=== PATIENT | female | born 1985 | race Caucasian/White ===

== ENCOUNTER 2017-03-21 11:31 | Emergency (ER) | payer OTHER ==
[2017-03-21 11:38] VITALS: RESP 18; O2SAT 100
[2017-03-21] MEDS ORDERED: Sodium Chloride 0.9% 1,000 ML IV ONE (12:46)
[2017-03-21] MEDS ORDERED: Sodium Chloride 0.9% 1,000 ML ONE (12:55)
[2017-03-21 13:08] LABS: BASO % 0.5 % (0.0-2.0); EOS % 0.7 % (0.0-4.0); HEMATOCRIT 40.3 % (34.0-47.0); LYMPH # 1.8 K/uL (1.0-4.3); LYMPH % 48.3 % (20.0-40.0); MEAN CELL VOLUME 67.1 fL (81.0-99.0); MEAN CORPUSCULAR HEMOGLOBIN 20.9 pg (27.0-31.0); MEAN CORPUSCULAR HGB CONC 31.2 g/dL (33.0-37.0); MEAN PLATELET VOLUME 10.5 fL (7.2-11.7); MONO # 0.4 K/uL (0.0-0.8); MONO % 12.3 % (0.0-10.0); WHITE BLOOD COUNT 3.6 K/uL (4.8-10.8)
[2017-03-21 13:16] LABS: RBC URINE 1 /hpf (0-3); URINE BILIRUBIN NEGATIVE (NEGATIVE); URINE BLOOD NEGATIVE (NEGATIVE); URINE COLOR Yellow (YELLOW); URINE GLUCOSE (UA) NORMAL (Normal); URINE KETONE NEGATIVE (NEGATIVE); URINE LEUKOCYTE ESTERASE NEG Leu/uL (Negative); URINE PROTEIN NEGATIVE (NEGATIVE); URINE UROBILINOGEN NORMAL mg/dL (0.2-1.0); WBC URINE < 1 /hpf (0-5)
[2017-03-21 13:18] LABS: CHLORIDE 100 mmol/L (98-107); POTASSIUM 3.4 mmol/L (3.6-5.2); SODIUM 138 mmol/L (132-148)
[2017-03-21 13:20] LABS: BILIRUBIN,TOTAL 0.6 mg/dL (0.2-1.3); CARBON DIOXIDE 23 mmol/L (22-30); GFR AFRICAN-AMERICAN > 60
[2017-03-21 13:21] LABS: ALB/GLOB RATIO 1.3 (1.0-2.1); ALKALINE PHOSPHATASE 48 U/L (38-126); ALT/SGPT 17 U/L (9-52); AST/SGOT 19 U/L (14-36); BLOOD UREA NITROGEN 6 mg/dL (7-17); CALCIUM 9.2 mg/dl (8.6-10.4); GLUCOSE,RANDOM 76 mg/dL (65-105); TOTAL PROTEIN 7.8 g/dL (6.3-8.3)
[2017-03-21 16:36] VITALS: BP 107/65; PULSE 86; TEMP 98
--- NOTE | 2017-03-21 17:47 | US ---
PROCEDURE: OB Pelvic Ultrasound HISTORY: and pain COMPARISON: None available. FINDINGS: UTERUS: Gestational sac: Single intrauterine gestation. Heart rate: 163 bpm. age (Ultrasound estimated): 11 weeks +/-0 weeks 5 days Catarina-gestational hemorrhage: None. Date of delivery (Ultrasound estimated) : 10/10/2017 Uterus measures 13.2 x 6 x 9.1 cm. Normal in size and appearance. CERVIX: Long and closed. No cervical abnormality seen. RIGHT OVARY: Measures 4.2 x 1.7 x 3.2 cm. No mass lesion. Normal flow. LEFT OVARY: Measures 3.2 x 2.1 x 2 cm. No solid mass. Normal flow. FREE FLUID: None. OTHER FINDINGS: None. IMPRESSION: Single intrauterine live with ultrasound estimated gestational age of 11 weeks 0 day +/- 0 weeks 5 days. Estimated date of delivery by ultrasound is 10/10/2017.
--- NOTE | 2017-03-21 17:50 | C.PDOC ---
Time Seen by Provider: 03/21/17 12:37 Chief Complaint (Nursing): Abdominal Pain Past Medical History Vital Signs: Last Vital Signs Temp 98 F 03/21/17 16:36 Pulse 86 03/21/17 16:36 Resp 18 03/21/17 16:36 BP 107/65 03/21/17 16:36 Pulse Ox 100 03/21/17 16:36 - Social History Hx Alcohol Use: No Hx Substance Use: No ED Course And Treatment - Laboratory Results Result Diagrams: 03/21/17 12:56 03/21/17 12:56 O2 Sat by Pulse Oximetry: 100 - CT Scan/US US 1st Trimester Other Rad Studies (CT/US): Read By Radiologist, Radiology Report Reviewed CT/US Interpretation: IMPRESSION: Single intrauterine live with ultrasound estimated gestational age of 11 weeks 0 day +/- 0 weeks 5 days. Estimated date of delivery by ultrasound is 10/10/2017.
--- NOTE | 2017-03-21 17:52 | C.PDOC ---
History Of Present Illness 31-year-old female, presents to the emergency department with complaints of lower-back pain bilaterally, that is radiating to groin. Pain is persistent in nature and rated 4/10. It is dull and associated with cough/congestion. Patient notes specks of blood in her vomitus yesterday. Denies headache, back pain, dizziness, or any other associated symptoms. No other complaints at this time. Time Seen by Provider: 03/21/17 12:37 Chief Complaint (Nursing): Abdominal Pain History Per: Patient History/Exam Limitations: no limitations Past Medical History Reviewed: Historical Data, Nursing Documentation, Vital Signs Vital Signs: Last Vital Signs Temp 98 F 03/21/17 16:36 Pulse 86 03/21/17 16:36 Resp 18 03/21/17 16:36 BP 107/65 03/21/17 16:36 Pulse Ox 100 03/21/17 18:21 Family History: States: Unknown Family Hx - Social History Hx Alcohol Use: No Hx Substance Use: No Review Of Systems Except As Marked, All Systems Reviewed And Found Negative. Constitutional: Negative for: Fever, Chills Cardiovascular: Negative for: Chest Pain Respiratory: Positive for: Cough. Negative for: Shortness of Breath Gastrointestinal: Positive for: Nausea, Vomiting Musculoskeletal: Positive for: Back Pain Skin: Negative for: Rash Neurological: Negative for: Weakness, Numbness Physical Exam - Physical Exam Appears: Non-toxic, No Acute Distress Skin: Normal Color, Warm, Dry Head: Atraumatic, Normacephalic Eye(s): bilateral: Normal Inspection, PERRL, EOMI Nose: Normal Throat: Normal Neck: Normal Cardiovascular: Rhythm Regular Respiratory: Normal Breath Sounds, No Accessory Muscle Use Gastrointestinal/Abdominal: Normal Exam Back: Normal Inspection Pelvic: No Cervical Motion Tenderness Extremity: Normal ROM Neurological/Psych: Oriented x3, Normal Speech ED Course And Treatment - Laboratory Results Result Diagrams: 03/21/17 12:56 03/21/17 12:56 O2 Sat by Pulse Oximetry: 100 - CT Scan/US US 1st Trimester CT/US Interpretation: Accession No. : [id number]. Patient Name / ID : MG HERRERA / [id number]. Exam Date : 03/21/2017 15:55:54 ( Approved ). Study Comment : Sex / Age : F / 31Y. Creator : Jessy Swift. Dictator : Jessy Swift. Staining Machine Operator : Waxed Bag Machine Operator : Jessy Swift. Approver2 : Report Date : 03/21/2017 17:45:37. My Comment : . PROCEDURE: OB Pelvic Ultrasound. HISTORY: and pain. COMPARISON: None available. FINDINGS: UTERUS: Gestational sac: Single intrauterine gestation. Heart rate: 163 bpm. age (Ultrasound estimated): 11 weeks +/-0 weeks 5 days. Catarina-gestational hemorrhage: None. Date of delivery (Ultrasound estimated) : 10/10/2017. Uterus measures 13.2 x 6 x 9.1 cm. Normal in size and appearance. CERVIX: Long and closed. No cervical abnormality seen. RIGHT OVARY: Measures 4.2 x 1.7 x 3.2 cm. No mass lesion. Normal flow. LEFT OVARY: Measures 3.2 x 2.1 x 2 cm. No solid mass. Normal flow. FREE FLUID: None. OTHER FINDINGS: None. IMPRESSION: Single intrauterine live with ultrasound estimated gestational age of 11 weeks 0 day +/- 0 weeks 5 days. Estimated date of delivery by ultrasound is 10/10/2017. Disposition Counseled Patient/Family Regarding: Studies Performed, Diagnosis, Need For Followup - Disposition Disposition: HOME/ ROUTINE Disposition Time: 17:50 Condition: STABLE Additional Instructions: Follow up with your doctor. Return to the Emergency department with any other concerned, Drink pleny water, get extra rest. Instructions: (ED), Upper Respiratory Infection (ED) - POA Present On Arrival: None - Clinical Impression Clinical Impression: Back pain, Upper respiratory infection, at early stage - Scribe Statement The provider has reviewed the documentation as recorded by the Scribe Thierry Cox All medical record entries made by the Scribe were at my direction and personally dictated by me. I have reviewed the chart and agree that the record accurately reflects my personal performance of the history, physical exam, medical decision making, and the department course for this patient. I have also personally directed, reviewed, and agree with the discharge instructions and disposition.
== END 2017-03-21 18:18 | disposition home or self-care (01) ==
LOC: C.ER 11:31
DX: O26.891 Other specified pregnancy related conditions, first trimester (principal); M54.9 Dorsalgia, unspecified; Z3A.11 11 weeks gestation of pregnancy; J06.9 Acute upper respiratory infection, unspecified
CPT/HCPCS: 76801; 80053; 81001; 84702; 84703; 85025; 96360; 99284; J7040

== ENCOUNTER 2017-04-04 11:29 | Emergency (ER) | payer OTHER, SELFPAY ==
[2017-04-04 11:39] VITALS: BMI 20.9
[2017-04-04 11:40] VITALS: TEMP 97.9; O2SAT 100
--- NOTE | 2017-04-04 12:15 | C.PDOC ---
History Of Present Illness 31 year old patient presents to the ED complaining of a new onset of vaginal bleeding since this morning. Patient also complains of mild suprapubic pain. She had a positive IUP in February. Patient was referred to the ED by the outpatient lab. Patient denies fever, nausea, vomiting, diarrhea, back pain, or any other associated symptoms. Time Seen by Provider: 04/04/17 11:52 Chief Complaint (Nursing): Female Genitourinary History Per: Patient History/Exam Limitations: no limitations Onset/Duration Of Symptoms: Sudden Onset Current Symptoms Are (Timing): Still Present Severity: Mild Pain Scale Rating Of: 3 Quality Of Discomfort: "Pain" Alleviating Factors: None Recent travel outside of the [place]: No Abnormal Vaginal Bleeding: Yes Past Medical History Reviewed: Historical Data, Nursing Documentation, Vital Signs Vital Signs: Last Vital Signs Temp 97.9 F 04/04/17 11:40 Pulse 74 04/04/17 14:59 Resp 16 04/04/17 14:59 BP 110/59 L 04/04/17 14:59 Pulse Ox 100 04/04/17 14:59 Family History: States: Unknown Family Hx - Social History Hx Alcohol Use: No Hx Substance Use: No - Immunization History Hx Tetanus Toxoid Vaccination: No Hx Influenza Vaccination: No Hx Pneumococcal Vaccination: No Review Of Systems Except As Marked, All Systems Reviewed And Found Negative. Constitutional: Negative for: Fever Gastrointestinal: Positive for: Abdominal Pain. Negative for: Nausea, Vomiting , Diarrhea Genitourinary: Positive for: Vaginal Bleeding Musculoskeletal: Negative for: Back Pain Physical Exam - Physical Exam Appears: Non-toxic, No Acute Distress Skin: Warm, Dry Head: Atraumatic, Normacephalic Neck: Normal ROM, Supple Chest: Symmetrical Cardiovascular: Rhythm Regular Respiratory: Normal Breath Sounds, No Rales, No Rhonchi, No Wheezing Gastrointestinal/Abdominal: Soft, Tenderness (mild suprapubic), No Guarding, No Rebound Back: Normal Inspection, No CVA Tenderness Extremity: Normal ROM Neurological/Psych: Oriented x3, Normal Motor, Normal Sensation Gait: Steady ED Course And Treatment - Laboratory Results Result Diagrams: 04/04/17 13:00 O2 Sat by Pulse Oximetry: 100 (room air) Pulse Ox Interpretation: Normal Progress - Re-Evaluation Re-evaluation Note: 04/04/17 15:16 NO RECUR VB VSS. BETA INCR COMPARED TO PRIOR. ADVISED FU OBGYN, RETURN IF WORSENIN GSX - Data Reviewed Data Reviewed: Lab, Old records Medical Decision Making Medical Decision Making: On 03/21/17, patient's beta was [id number]. Patient was seen at the outpatient clinic today. She had a urinalysis done which shows hematuria. Disposition Counseled Patient/Family Regarding: Studies Performed, Diagnosis, Need For Followup - Disposition Referrals: [facility] [Outside] [facility] [Outside] [facility] [Outside] Disposition: HOME/ ROUTINE Disposition Time: 15:17 Condition: GOOD Instructions: Threatened Miscarriage (ED) - Clinical Impression Clinical Impression: Threatened - Scribe Statement The provider has reviewed the documentation as recorded by the Scribsaray Jarvis Provider Attestation: All medical record entries made by the Scribe were at my direction and personally dictated by me. I have reviewed the chart and agree that the record accurately reflects my personal performance of the history, physical exam, medical decision making, and the department course for this patient. I have also personally directed, reviewed, and agree with the discharge instructions and disposition.
[2017-04-04 13:27] LABS: HEMATOCRIT 38.6 % (34.0-47.0); MEAN CELL VOLUME 67.2 fL (81.0-99.0); MEAN CORPUSCULAR HEMOGLOBIN 21.1 pg (27.0-31.0); MEAN CORPUSCULAR HGB CONC 31.4 g/dL (33.0-37.0); MEAN PLATELET VOLUME 10.4 fL (7.2-11.7); RED CELL DISTRIBUTION WIDTH 15.1 % (11.5-14.5); WHITE BLOOD COUNT 5.6 K/uL (4.8-10.8)
[2017-04-04 15:00] VITALS: BP 110/59; PULSE 74; RESP 16
== END 2017-04-04 15:27 | disposition home or self-care (01) ==
LOC: C.ER 11:29
DX: O20.0 Threatened abortion (principal); Z3A.13 13 weeks gestation of pregnancy

== ENCOUNTER 2017-04-04 15:35 | Emergency (ER) | payer OTHER, SELFPAY ==
[2017-04-04 15:36] VITALS: BMI 20.9
[2017-04-04 16:05] VITALS: BP 94/42; PULSE 77; RESP 18; TEMP 98.5; O2SAT 99
[2017-04-04] MEDS ORDERED: Dextrose 5%/0.45% NS 1,000 ML IV SCH (17:15)
--- NOTE | 2017-04-04 18:10 | C.PDOC ---
History Of Present Illness Patient is a 31 y/o female who came to the clinic this morning for blood tests related to and was sent to the ER when it was discovered that patient was having some vaginal bleeding. Patient was seen in fast track earlier today , and diagnosed with threatened . She notes that she was fasting for blood tests since 10 pm last night. As pt was being discharged from ER for threatened , she reported feeling woozy, and had near syncopal episode. Patient did not fall, did not hit her head, or black out. Patient brought back to ER after this near-syncopal episode. On arrival, patient c/o feeling nauseous with frontal headache, and concerned over blood pressure. BP 92/44 on arrival. Also c/o generalized weakness. History obtained via collections specialist [facility] # [id number] from [place]. Time Seen by Provider: 04/04/17 16:20 Chief Complaint (Nursing): Dizziness/Lightheaded History Per: Patient History/Exam Limitations: no limitations Onset/Duration Of Symptoms: Hrs Current Symptoms Are (Timing): Still Present Associated Symptoms Preceding Syncopal Episode: Lightheadedness Seizure Or Post-ictal Symptoms: None Possible Causative Factor(s): Lightheaded W/Standing, Other (fasting) Fall Associated With With Symptoms: No Recent travel outside of the [place]: No Past Medical History Reviewed: Historical Data, Nursing Documentation, Vital Signs Vital Signs: Last Vital Signs Temp 98.5 F 04/04/17 15:55 Pulse 77 04/04/17 15:55 Resp 18 04/04/17 18:15 BP 94/42 L 04/04/17 15:55 Pulse Ox 99 04/06/17 14:59 - Medical History PMH: No Chronic Diseases Other PMH: currently Family History: States: Unknown Family Hx - Social History Hx Alcohol Use: No Hx Substance Use: No - Immunization History Hx Tetanus Toxoid Vaccination: No Hx Influenza Vaccination: No Hx Pneumococcal Vaccination: No Review Of Systems Except As Marked, All Systems Reviewed And Found Negative. Constitutional: Positive for: Weakness. Negative for: Fever, Chills Cardiovascular: Positive for: Light Headedness. Negative for: Chest Pain Respiratory: Negative for: Cough, Shortness of Breath, Wheezing Gastrointestinal: Positive for: Nausea. Negative for: Vomiting, Abdominal Pain Musculoskeletal: Negative for: Neck Pain Neurological: Positive for: Headache. Negative for: Weakness, Numbness Physical Exam - Physical Exam Appears: Non-toxic, No Acute Distress (eating potato chips. ) Skin: Warm, Dry Head: Atraumatic, Normacephalic Eye(s): bilateral: Normal Inspection, PERRL, EOMI Oral Mucosa: Moist Neck: Supple Chest: Symmetrical Cardiovascular: Rhythm Regular, No Murmur Respiratory: Normal Breath Sounds, No Rales, No Rhonchi, No Wheezing Gastrointestinal/Abdominal: Soft, No Tenderness, No Guarding, No Rebound Back: Normal Inspection Extremity: Normal ROM, Capillary Refill (< 2 sec.) Neurological/Psych: Oriented x3, Normal Speech, Normal Cognition, Normal Motor, Normal Sensation ED Course And Treatment O2 Sat by Pulse Oximetry: 99 (RA) Pulse Ox Interpretation: Normal Medical Decision Making Medical Decision Making: Patient eloped prior to treatment fingerstick was 74. . pt has orthostatic vital signs, heplock insertion and iv fluids ordered. pt unwilling to wait for nurse, left in company of male friend, walked out in no distress. pt eating chips prior to leaving Disposition - Disposition Referrals: [facility] [Outside] Disposition: ELOPEMENT - ER ONLY Disposition Time: 18:15 Condition: STABLE - Clinical Impression Clinical Impression: Near syncope - PA / LEAK INSPECTOR / Resident Statement MD/DO has reviewed & agrees with the documentation as recorded. - Scribe Statement The provider has reviewed the documentation as recorded by the Scribe Floyd Cunningham All medical record entries made by the Scribe were at my direction and personally dictated by me. I have reviewed the chart and agree that the record accurately reflects my personal performance of the history, physical exam, medical decision making, and the department course for this patient. I have also personally directed, reviewed, and agree with the discharge instructions and disposition.
== END 2017-04-04 18:16 | disposition left against medical advice (07) ==
LOC: C.ER 15:35
DX: O26.891 Other specified pregnancy related conditions, first trimester (principal); R55 Syncope and collapse; Z3A.13 13 weeks gestation of pregnancy